=== PATIENT | female | born 2000 | race Caucasian/White ===

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

== ENCOUNTER 2020-02-01 11:29 | Emergency (ER) | payer BC ==
--- NOTE | 2020-02-01 12:09 | EDM.PDOC ---
ED HPI GENERAL MEDICAL PROBLEM - General Chief Complaint: Chest Pain Stated Complaint: BREATHING PROB WITH CHEST PAINS Time Seen by Provider: 02/01/20 11:40 Source of Information: Reports: Patient History Limitations: Reports: No Limitations - History of Present Illness INITIAL COMMENTS - FREE TEXT/NARRATIVE: HISTORY OF PRESENT ILLNESS: Patient is a 19-year-old female G1, P0 at 18 weeks confirmed by ultrasound who presents with complaints of chest pain that has now resolved. Approximately 10:00 she had an hour episode of pleuritic chest pain described as sharp, only when breathing in that resolved spontaneously. Had mild associated dyspnea. Denies any leg pain or history of thromboembolic disease. No syncope. Denies any fevers chills or cough. No hemoptysis. No abdominal pain, nausea vomiting diarrhea or vaginal bleeding. No family history of early or unexpected . REVIEW OF SYSTEMS: Other than the symptoms associated with the present events, the following is reported with regard to recent health: General: (-) fever. HENT: (-) congestion. Respiratory: (-) cough. Cardiovascular: (+) chest pain. GI: (-) abdominal pain. : (-) urinary complaints. Musculoskeletal: (-) other aches or pains. Endocrine: (-) generalized weakness. Neurological: (-) localized weakness. Skin: (-) rash PAST MEDICAL HISTORY: reviewed as per nursing notes SOCIAL HISTORY: reviewed as per nursing notes, MEDICATIONS: Per nurse's note ALLERGIES: Per nurse's note, reviewed by me PHYSICAL EXAMINATION: GENERALIZED APPEARANCE: well developed, well nourished in no distress VITAL SIGNS: Per nurse's note, reviewed by me SKIN: Warm, dry; (-) cyanosis; (-) rash. HEAD: (-) scalp swelling, (-) tenderness. EYES: (-) conjunctival pallor, (-) scleral icterus. ENMT: (-) stridor; mucous membranes moist. NECK: (-) tenderness, (-) stiffness, CHEST AND RESPIRATORY: (-) rales, (-) rhonchi, (-) wheezes; breath sounds equal bilaterally. HEART AND CARDIOVASCULAR: (-) irregularity; (-) murmur, (-) gallop. ABDOMEN AND GI: Soft; . (-) tenderness, (-) guarding, (-) rebound, (-) palpable masses, EXTREMITIES: (-) deformity, (-) edema. no calf swelling, tenderness or palpable cord. NEURO AND PSYCH: Alert. Cranial nerves grossly intact; strength symmetric. gait steady DIAGNOSTICS: Labs ordered and reviewed EKG: sr with sinus arrhythmia at [address]pm[address]. no [address] elevation. EMERGENCY DEPARTMENT COURSE AND TREATMENT: Patient's condition remained stable during Emergency Department evaluation. Based on history, physical exam, and diagnostic evaluation, the patient appears to have symptoms consistent with low risk chest pain. The physical exam was unremarkable including normal chest and respiratory exam. Laboratory testing was performed. I do not believe the symptoms are related to acute ischemic chest pain. I also do not believe this is a vascular catastrophe such as an aortic dissection or an acute rupture of an abdominal aortic aneurysm. The patient is low risk for acute thromboembolic phenomena. PERC score = 0. Although PERC cannot be used in isolation in , given her normal vital signs and resolution of symptoms, do not feel D-dimer indicated as it will likely lead to unnecessary radiation risk. However , she must return immediately with any return of symptoms or any new or worsening symptoms The patient will be discharged to follow-up with their primary care physician and OB in the next 24 hours or return here if unable to make an appointment with their primary care physician. Patient was advised of our evaluation and instructed to seek medical attention immediately if symptoms change, worsen, or new symptoms develop. PLAN AND FOLLOW-UP: Patient received written and verbal instructions regarding this condition. Return to ED immediately with any new or worsening symptoms. Follow up to be arranged by patient with pcp in 1 days for further evaluation. Given discharge precautions. Patient expressed verbal understanding. chest Pain Score (Numeric/FACES): 8 - Related Data Allergies Allergy/AdvReac Type Severity Reaction Status Date / Time No Known Allergies Allergy Verified 05/13/17 20:09 Home Meds: Home Meds . 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: Neurological History: Reports: Headaches, Chronic - Infectious Disease History Infectious Disease History: Reports: None Social & Family History - Family History Family Medical History: Noncontributory - Tobacco Use Smoking Status *Q: Never Smoker - Caffeine Use Caffeine Use: Reports: None - Recreational Drug Use Recreational Drug Use: No ED ROS GENERAL - Review of Systems Review Of Systems: See Below (see dictation) ED EXAM, GENERAL - Physical Exam Exam: See Below (see dictation) Course - Vital Signs Last Recorded V/S: Last Vital Signs Temp 97.1 F 02/01/20 11:32 Pulse 80 02/01/20 11:32 Resp 20 02/01/20 11:32 BP 123/76 02/01/20 11:32 Pulse Ox 100 02/01/20 11:32 - Orders/Labs/Meds Orders: Active Orders 24 hr Category Date Time Status EKG 12 Lead [EKG Documentation Completion] [RC] ROUTINE Care 02/01/20 11:55 Active EKG Documentation Completion [RC] STAT Care 02/01/20 12:04 Active Labs: Laboratory Tests 02/01/20 02/01/20 Range/Units 12:17 12:17 WBC 9.40 (4.0-11.0) K/uL RBC 4.08 L (4.30-5.90) M/uL Hgb 12.6 (12.0-16.0) g/dL Hct 37.9 (36.0-46.0) % MCV 92.9 (80.0-98.0) fL MCH 30.9 (27.0-32.0) pg MCHC 33.2 (31.0-37.0) g/dL RDW Std Deviation 45.0 (28.0-62.0) fl RDW Coeff of Maida 13 (11.0-15.0) % Plt Count 278 (150-400) K/uL MPV 10.70 (7.40-12.00) fL Neut % (Auto) 76.3 (48.0-80.0) % Lymph % (Auto) 17.9 (16.0-40.0) % Caswell % (Auto) 5.0 (0.0-15.0) % Eos % (Auto) 0.5 (0.0-7.0) % Baso % (Auto) 0.3 (0.0-1.5) % Neut # (Auto) 7.2 H (1.4-5.7) K/uL Lymph # (Auto) 1.7 (0.6-2.4) K/uL Caswell # (Auto) 0.5 (0.0-0.8) K/uL Eos # (Auto) 0.1 (0.0-0.7) K/uL Baso # (Auto) 0.0 (0.0-0.1) K/uL Nucleated RBC % 0.0 /100WBC Nucleated RBCs # 0 K/uL Sodium 138 (136-145) mmol/L Potassium 4.1 (3.5-5.1) mmol/L Chloride 103 (98-107) mmol/L Carbon Dioxide 25.9 (21.0-32.0) mmol/L BUN 5 L (7.0-18.0) mg/dL Creatinine 0.5 L (0.6-1.0) mg/dL Est Cr Clr Drug Dosing 153.69 mL/min Estimated GFR (MDRD) > 60.0 ml/min Glucose 77 (74-106) mg/dL Calcium 9.1 (8.5-10.1) mg/dL Magnesium 2.1 (1.8-2.4) mg/dL Total Bilirubin 0.3 (0.2-1.0) mg/dL AST 19 (15-37) IU/L ALT 26 (14-63) IU/L Alkaline Phosphatase 57 (46-116) U/L Troponin I < 0.050 (0.000-0.056) ng/mL Total Protein 7.2 (6.4-8.2) g/dL Albumin 3.3 L (3.4-5.0) g/dL Globulin 3.9 (2.6-4.0) g/dL Albumin/Globulin Ratio 0.9 (0.9-1.6) Departure - Departure Time of Disposition: 13:16 Disposition: Home, Self-Care 01 Condition: Good Clinical Impression: Chest pain - Discharge Information *PRESCRIPTION DRUG MONITORING PROGRAM REVIEWED*: Not Applicable *COPY OF PRESCRIPTION DRUG MONITORING REPORT IN PATIENT ENZO: Not Applicable Instructions: Nonspecific Chest Pain Referrals: PCP,Unobtain [Primary Care Provider] - 1 Day Forms: ED Department Discharge Additional Instructions: The following information is given to patients seen in the emergency department who are being discharged to home. This information is to outline your options for follow-up care. We provide all patients seen in our emergency department with a follow-up referral. The need for follow-up, as well as the timing and circumstances, are variable depending upon the specifics of your emergency department visit. If you don't have a primary care physician on staff, we will provide you with a referral. We always advise you to contact your personal physician following an emergency department visit to inform them of the circumstance of the visit and for follow-up with them and/or the need for any referrals to a consulting specialist. The emergency department will also refer you to a specialist when appropriate. This referral assures that you have the opportunity for follow-up care with a specialist. All of these measure are taken in an effort to provide you with optimal care, which includes your follow-up. Under all circumstances we always encourage you to contact your private physician who remains a resource for coordinating your care. When calling for follow-up care, please make the office aware that this follow-up is from your recent emergency room visit. If for any reason you are refused follow-up, please contact the [facility] Emergency Department at and asked to speak to the emergency department charge nurse. Sepsis Event Note - Evaluation Sepsis Screening Result: No Definite Risk - Focused Exam Vital Signs: Vital Signs Temp Pulse Resp BP Pulse Ox 02/01/20 11:32 97.1 F 80 20 123/76 100 Date Exam was Performed: 02/01/20 Time Exam was Performed: 13:24 - My Orders Last 24 Hours: My Active Orders 02/01/20 11:55 EKG 12 Lead [EKG Documentation Completion] [RC] ROUTINE 02/01/20 12:04 EKG Documentation Completion [RC] STAT - Assessment/Plan Last 24 Hours: My Active Orders 02/01/20 11:55 EKG 12 Lead [EKG Documentation Completion] [RC] ROUTINE 02/01/20 12:04 EKG Documentation Completion [RC] STAT
[2020-02-01 12:44] LABS: BLOOD UREA NITROGEN,BUN 5 mg/dL (7.0-18.0); CARBON DIOXIDE,CO2 25.9 mmol/L (21.0-32.0); CHLORIDE,CL 103 mmol/L (98-107); GLUCOSE RANDOM 77 mg/dL (74-106); POTASSIUM,K 4.1 mmol/L (3.5-5.1); SODIUM,NA 138 mmol/L (136-145)
--- NOTE | 2020-02-01 13:03 | CR ---
Chest: Portable view of the chest was obtained. Heart size and mediastinum are normal. Lungs are clear with no acute parenchymal change. Bony structures are grossly intact. Impression: 1. Nothing acute is identified on portable chest x-ray. Diagnostic code #1 This report was dictated in MDT
[2020-02-01 13:32] VITALS: BP 108/63; PULSE 85
== END 2020-02-01 13:29 | disposition home or self-care (01) ==
LOC: MW.ED 11:29
DX: R07.81 Pleurodynia (principal)
CPT/HCPCS: 36415; 71045; 71045-26; 80053; 83735; 84484; 85025; 93005; 99284; 99285-25

== ENCOUNTER 2020-07-01 00:20 | Inpatient (IN) | payer BC ==
[2020-07-01] MEDS ORDERED: Water For Irrigation,Sterile 1,000 ML Container IRR PRN (09:32)
[2020-07-01] MEDS ORDERED: Methylergonovine 0.2 MG/1 ML Amp IM PRN (09:32)
[2020-07-01] MEDS ORDERED: Sodium Chloride 0.9% 10 ML Syringe FLUSH PRN (09:32)
[2020-07-01] MEDS ORDERED: Terbutaline 1 MG/ML SDV SUBCUT PRN (09:32)
[2020-07-01] MEDS ORDERED: Sodium Chloride 0.9% 2.5 ML Syringe FLUSH PRN (09:32)
[2020-07-01] MEDS ORDERED: Misoprostol 200 MCG Tab PO PRN (09:32)
[2020-07-01] MEDS ORDERED: Carboprost Tromethamine 250 MCG/1 ML Amp IM PRN (09:32)
[2020-07-01] MEDS ORDERED: Lidocaine 1% 50 ML MDV INJECT PRN (09:32)
[2020-07-01] MEDS ORDERED: Tranexamic Acid 1,000 MG in Sodium Chloride 0.9% 100 ML IV PRN (09:32)
[2020-07-01] MEDS ORDERED: Butorphanol 1 MG/ML SDV IVPUSH PRN (09:32)
[2020-07-01] MEDS ORDERED: Nalbuphine 10 MG/1 ML Vial IVPUSH PRN (09:32)
[2020-07-01] MEDS ORDERED: Sodium Chloride 0.9% 10 ML SDV IV PRN (09:32)
[2020-07-01] MEDS ORDERED: Oxytocin/0.9 % Sodium Chloride 30 UNIT/500 ML BAG IV SCH ×2 (09:45)
[2020-07-01] MEDS: Lactated Ringers 1,000 ML IV SCH ×2 (11:00→17:41)
[2020-07-01] MEDS ORDERED: Ropivacaine HCl/PF 100 ML ONE (17:40)
[2020-07-01] MEDS ORDERED: fentaNYL 100 MCG/2 ML SDV ONE (17:40)
--- NOTE | 2020-07-01 18:08 | PCM.PREANE ---
Preanesthetic Assessment - Anesthesia/Transfusion/Family Hx Anesthesia History: No Prior Anesthesia Family History of Anesthesia Reaction: No Transfusion History: Prior Transfusion Without Reaction - Physical Assessment NPO Status Date: 07/01/20 NPO Status Time: 07:30 Height: 1.64 m Weight: 75.75 kg ASA Class: 2 - Lab Values: Laboratory Last Values WBC 9.49 K/uL (4.0-11.0) 07/01/20 10:00 RBC 3.96 M/uL (4.30-5.90) L 07/01/20 10:00 Hgb 11.9 g/dL (12.0-16.0) L 07/01/20 10:00 Hct 35.3 % (36.0-46.0) L 07/01/20 10:00 MCV 89.1 fL (80.0-98.0) 07/01/20 10:00 MCH 30.1 pg (27.0-32.0) 07/01/20 10:00 MCHC 33.7 g/dL (31.0-37.0) 07/01/20 10:00 RDW Std Deviation 39.7 fl (28.0-62.0) 07/01/20 10:00 RDW Coeff of Maida 13 % (11.0-15.0) 07/01/20 10:00 Plt Count 212 K/uL (150-400) 07/01/20 10:00 MPV 11.60 fL (7.40-12.00) 07/01/20 10:00 COVID-19 (GEORGE) NEGATIVE (NEGATIVE) 07/01/20 10:07 Blood Type A POSITIVE 07/01/20 10:00 Antibody Screen NEGATIVE 07/01/20 10:00 - Allergies Allergies/Adverse Reactions: Allergies Allergy/AdvReac Type Severity Reaction Status Date / Time No Known Allergies Allergy Verified 05/13/17 20:09 - Acknowledgements Anesthesia Type Planned: Epidural Pt an Appropriate Candidate for the Planned Anesthesia: Yes Alternatives and Risks of Anesthesia Discussed w Pt/Guardian: Yes Pt/Guardian Understands and Agrees with Anesthesia Plan: Yes PreAnesthesia Questionnaire - Past Health History Medical/Surgical History: Denies Medical/Surgical History HEENT History: Reports: None Cardiovascular History: Reports: None Respiratory History: Reports: None Gastrointestinal History: Reports: None Genitourinary History: Reports: None 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 History: Reports: Fracture Neurological History: Reports: Headaches, Chronic Psychiatric History: Reports: None Endocrine/Metabolic History: Reports: None Hematologic History: Reports: None Oncologic (Cancer) History: Reports: None Dermatologic History: Reports: None - Infectious Disease History Infectious Disease History: Reports: Chicken Pox - Past Surgical History HEENT Surgical History: Reports: Other (See Below) Other HEENT Surgeries/Procedures: wisdom teeth extracted Female Surgical History: Reports: None Musculoskeletal Surgical History: Reports: None - SUBSTANCE USE Smoking Status *Q: Former Smoker Tobacco Use Within Last Twelve Months: Cigarettes Second Hand Smoke Exposure: No Recreational Drug Use History: No - HOME MEDS Home Medications: Home Meds Vits #93/Iron Fum/FA [ Formula Tablet] 1 each PO DAILY 04/25/20 [History] Iron 18 mg PO DAILY 06/17/20 [History] ondansetron HCL [Zofran] 4 mg PO PRN 06/17/20 [History] - CURRENT (IN HOUSE) MEDS Current Meds: Current Medications Butorphanol Tartrate (Stadol) 1 mg IVPUSH Q1H PRN PRN Reason: Pain Last Admin: 07/01/20 17:06 Dose: 1 mg Documented by: Carboprost Tromethamine (Hemabate Ds) 250 mcg IM ASDIRECTED PRN PRN Reason: Post Hemorrhage Oxytocin/Sodium Chloride (Oxytocin 30 Unit/500 Ml-Ns) 30 unit in 500 mls @ 500 mls/hr IV TITRATE TIP Tranexamic Acid 1,000 mg/ (Sodium Chloride) 110 mls @ 660 mls/hr IV ONETIME PRN PRN Reason: Bleeding Oxytocin/Sodium Chloride (Oxytocin 30 Unit/500 Ml-Ns) 30 unit in 500 mls @ 2 mls/hr IV TITRATE TIP; Protocol Last Titration: 07/01/20 17:28 Dose: 2 munits/min, 2 mls/hr Documented by: Lactated Ringer's (Ringers, Lactated) 1,000 mls @ 150 mls/hr IV ASDIRECTED TIP Last Admin: 07/01/20 17:41 Dose: 500 mls/hr Documented by: Lidocaine HCl (Xylocaine 1%) 50 ml INJECT ONETIME PRN PRN Reason: Laceration repair Methylergonovine Maleate (Methergine) 0.2 mg IM ASDIRECTED PRN PRN Reason: Post Hemorrhage Misoprostol (Cytotec) 200 mcg PO ONETIME PRN PRN Reason: Post Hemorrhage Nalbuphine HCl (Nubain) 10 mg IVPUSH Q1H PRN PRN Reason: Pain (severe 7-10) Sodium Chloride (Saline Flush) 10 ml FLUSH ASDIRECTED PRN PRN Reason: Keep Vein Open Sodium Chloride (Saline Flush) 2.5 ml FLUSH ASDIRECTED PRN PRN Reason: Keep Vein Open Sodium Chloride (Normal Saline) 10 ml IV ASDIRECTED PRN PRN Reason: IV Use Sterile Water (Sterile Water For Irrigation) 1,000 ml IRR ASDIRECTED PRN PRN Reason: delivery Terbutaline Sulfate (Brethine) 0.25 mg SUBCUT ASDIRECTED PRN PRN Reason: Tacysystole Discontinued Medications Fentanyl (Sublimaze) Confirm Administered Dose 100 mcg .ROUTE .STK-MED ONE Stop: 07/01/20 17:41 Ropivacaine (Naropin 0.2%) Confirm Administered Dose 100 mls @ as directed .ROUTE .STK-MED ONE Stop: 07/01/20 17:41
--- NOTE | 2020-07-01 18:13 | PCM.PRNOTE ---
- Free Text/Narrative Note: Anes Note Pt requested labor epidural for L and D Risks and methods discussed. she wishes to proceed level L2-L3 midline approach. Sterile technique Chloroprep scrub to lumbar area Sterile Fenestrated drape applied Epidural space easily achieved. Single attempt using CHAN technique CHAN at 4 cm. 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
[2020-07-02] MEDS ORDERED: Lanolin 100% Cream 7 GM Tube TOP PRN (01:21)
[2020-07-02] MEDS ORDERED: oxyCODONE 5 MG Tab PO PRN (01:21)
[2020-07-02] MEDS ORDERED: Docusate Sodium 100 MG Cap PO PRN (01:21)
[2020-07-02] MEDS ORDERED: Bisacodyl 10 MG Supp RECTAL PRN (01:21)
[2020-07-02] MEDS ORDERED: Witch Hazel Medicated Pads 40/Jar TOP PRN (01:21)
[2020-07-02] MEDS ORDERED: Benzocaine/Menthol 20%-0.5% Spray 78 GM Cannister TOP PRN (01:21)
[2020-07-02] MEDS ORDERED: Acetaminophen 500 MG Tab PO PRN (01:21)
--- NOTE | 2020-07-02 01:26 | PCM.DEL ---
<Sky Ashley A - Last Filed: 07/02/20 01:20> L & D Note - General Info Date of Service: 07/02/20 Mother's Due Date: 07/05/20 - Delivery Note Labor: Augmented by Oxytocin Cervical Ripening Method: Oxytocin Delivery Outcome: Livebirth Infant Delivery Method: Spontaneous Vaginal Delivery-Single Delivery Mode: Spontaneous Presentation: Left Occiput Anterior (LAUREN) Nuchal Cord: None Anesthesia Type: Epidural Anesthetic: Lidocaine (Xylocaine) 1% Plain Local Anesthetic Volume: 3cc Amniotic Fluid Description: Meconium Stained Episiotomy Type: None Suture type: Vicryl Suture size: 3-0 Placenta: Intact, Spontaneous Cord: 3 Vessels Estimated Blood Loss: 300 Resuscitation Needed: No Brothers: Bulb Syringe Provider: Stephen Madrid Score 1 min: 8 Score 5 min: 9 Second Stage Interventions: Reports: Pushing Effectively Delivery Comments (Free Text/Narrative):: Liveborn female born at 0020, APGARs 8 and 9 weighing 3270g over a left labial laceration repaired, no complications, mom and baby progressing well - General Info Date of Service: 07/02/20 Admission Dx/Problem (Free Text): Patient elective IOL at 39/3 - Patient Data Weight - Most Recent: 75.75 kg Lab Results Last 24 Hours: Laboratory Results - last 24 hr 07/01/20 07/01/20 07/01/20 Range/Units 10:00 10:00 10:07 WBC 9.49 (4.0-11.0) K/uL RBC 3.96 L (4.30-5.90) M/uL Hgb 11.9 L (12.0-16.0) g/dL Hct 35.3 L (36.0-46.0) % MCV 89.1 (80.0-98.0) fL MCH 30.1 (27.0-32.0) pg MCHC 33.7 (31.0-37.0) g/dL RDW Std Deviation 39.7 (28.0-62.0) fl RDW Coeff of Maiad 13 (11.0-15.0) % Plt Count 212 (150-400) K/uL MPV 11.60 (7.40-12.00) fL COVID-19 (GEORGE) NEGATIVE (NEGATIVE) Blood Type A POSITIVE Antibody Screen NEGATIVE Med Orders - Current: Current Medications Butorphanol Tartrate (Stadol) 1 mg IVPUSH Q1H PRN PRN Reason: Pain Last Admin: 07/01/20 17:06 Dose: 1 mg Documented by: Carboprost Tromethamine (Hemabate Ds) 250 mcg IM ASDIRECTED PRN PRN Reason: Post Hemorrhage Oxytocin/Sodium Chloride (Oxytocin 30 Unit/500 Ml-Ns) 30 unit in 500 mls @ 500 mls/hr IV TITRATE TIP Last Infusion: 07/02/20 00:37 Dose: 500 mls/hr Documented by: Tranexamic Acid 1,000 mg/ (Sodium Chloride) 110 mls @ 660 mls/hr IV ONETIME PRN PRN Reason: Bleeding Oxytocin/Sodium Chloride (Oxytocin 30 Unit/500 Ml-Ns) 30 unit in 500 mls @ 2 mls/hr IV TITRATE TIP; Protocol Last Titration: 07/02/20 00:21 Dose: 0 munits/min, 0 mls/hr Documented by: Lactated Ringer's (Ringers, Lactated) 1,000 mls @ 150 mls/hr IV ASDIRECTED TIP Last Admin: 07/01/20 17:41 Dose: 500 mls/hr Documented by: Lidocaine HCl (Xylocaine 1%) 50 ml INJECT ONETIME PRN PRN Reason: Laceration repair Last Admin: 07/02/20 00:30 Dose: 50 ml Documented by: Methylergonovine Maleate (Methergine) 0.2 mg IM ASDIRECTED PRN PRN Reason: Post Hemorrhage Misoprostol (Cytotec) 200 mcg PO ONETIME PRN PRN Reason: Post Hemorrhage Nalbuphine HCl (Nubain) 10 mg IVPUSH Q1H PRN PRN Reason: Pain (severe 7-10) Sodium Chloride (Saline Flush) 10 ml FLUSH ASDIRECTED PRN PRN Reason: Keep Vein Open Sodium Chloride (Saline Flush) 2.5 ml FLUSH ASDIRECTED PRN PRN Reason: Keep Vein Open Sodium Chloride (Normal Saline) 10 ml IV ASDIRECTED PRN PRN Reason: IV Use Sterile Water (Sterile Water For Irrigation) 1,000 ml IRR ASDIRECTED PRN PRN Reason: delivery Last Admin: 07/02/20 00:38 Dose: 1,000 ml Documented by: Terbutaline Sulfate (Brethine) 0.25 mg SUBCUT ASDIRECTED PRN PRN Reason: Tacysystole Discontinued Medications Fentanyl (Sublimaze) Confirm Administered Dose 100 mcg .ROUTE .STK-MED ONE Stop: 07/01/20 17:41 Ropivacaine (Naropin 0.2%) Confirm Administered Dose 100 mls @ as directed .ROUTE .STK-MED ONE Stop: 07/01/20 17:41 <Katie Becker - Last Filed: 07/02/20 01:36> L & D Note - Delivery Note Delivery Comments (Free Text/Narrative):: Compound right hand - Patient Data Lab Results Last 24 Hours: Laboratory Results - last 24 hr 07/01/20 07/01/20 07/01/20 Range/Units 10:00 10:00 10:07 WBC 9.49 (4.0-11.0) K/uL RBC 3.96 L (4.30-5.90) M/uL Hgb 11.9 L (12.0-16.0) g/dL Hct 35.3 L (36.0-46.0) % MCV 89.1 (80.0-98.0) fL MCH 30.1 (27.0-32.0) pg MCHC 33.7 (31.0-37.0) g/dL RDW Std Deviation 39.7 (28.0-62.0) fl RDW Coeff of Maida 13 (11.0-15.0) % Plt Count 212 (150-400) K/uL MPV 11.60 (7.40-12.00) fL Cord VBG pH (7.25-7.45) Cord VBG Base Excess (-10--2) COVID-19 (GEORGE) NEGATIVE (NEGATIVE) Blood Type A POSITIVE Antibody Screen NEGATIVE 07/02/20 Range/Units 00:23 WBC (4.0-11.0) K/uL RBC (4.30-5.90) M/uL Hgb (12.0-16.0) g/dL Hct (36.0-46.0) % MCV (80.0-98.0) fL MCH (27.0-32.0) pg MCHC (31.0-37.0) g/dL RDW Std Deviation (28.0-62.0) fl RDW Coeff of Maida (11.0-15.0) % Plt Count (150-400) K/uL MPV (7.40-12.00) fL Cord VBG pH 7.328 (7.25-7.45) Cord VBG Base Excess -4 (-10--2) COVID-19 (GEORGE) (NEGATIVE) Blood Type Antibody Screen Med Orders - Current: Current Medications Acetaminophen (Tylenol Extra Strength) 1,000 mg PO Q6H PRN PRN Reason: Pain Benzocaine/Menthol (Dermoplast Pain Relief 20%-0.5% [place]) 78 gm TOP ASDIRECTED PRN PRN Reason: Perineal Comfort Measure Bisacodyl (Dulcolax) 10 mg RECTAL ONETIME PRN PRN Reason: Constipation Butorphanol Tartrate (Stadol) 1 mg IVPUSH Q1H PRN PRN Reason: Pain Last Admin: 07/01/20 17:06 Dose: 1 mg Documented by: Carboprost Tromethamine (Hemabate Ds) 250 mcg IM ASDIRECTED PRN PRN Reason: Post Hemorrhage Docusate Sodium (Colace) 100 mg PO BID PRN PRN Reason: Constipation Emollient Ointment (Lansinoh Hpa) 0 gm TOP ASDIRECTED PRN PRN Reason: Sore Nipples Oxytocin/Sodium Chloride (Oxytocin 30 Unit/500 Ml-Ns) 30 unit in 500 mls @ 500 mls/hr IV TITRATE TIP Last Infusion: 07/02/20 00:37 Dose: 500 mls/hr Documented by: Tranexamic Acid 1,000 mg/ (Sodium Chloride) 110 mls @ 660 mls/hr IV ONETIME PRN PRN Reason: Bleeding Oxytocin/Sodium Chloride (Oxytocin 30 Unit/500 Ml-Ns) 30 unit in 500 mls @ 2 mls/hr IV TITRATE TIP; Protocol Last Titration: 07/02/20 00:21 Dose: 0 munits/min, 0 mls/hr Documented by: Lactated Ringer's (Ringers, Lactated) 1,000 mls @ 150 mls/hr IV ASDIRECTED TIP Last Admin: 07/01/20 17:41 Dose: 500 mls/hr Documented by: Ibuprofen (Motrin) 800 mg PO Q8H PRN PRN Reason: Pain Lidocaine HCl (Xylocaine 1%) 50 ml INJECT ONETIME PRN PRN Reason: Laceration repair Last Admin: 07/02/20 00:30 Dose: 50 ml Documented by: Methylergonovine Maleate (Methergine) 0.2 mg IM ASDIRECTED PRN PRN Reason: Post Hemorrhage Misoprostol (Cytotec) 200 mcg PO ONETIME PRN PRN Reason: Post Hemorrhage Nalbuphine HCl (Nubain) 10 mg IVPUSH Q1H PRN PRN Reason: Pain (severe 7-10) Oxycodone HCl (Oxycodone) 5 mg PO Q2H PRN PRN Reason: Pain Sodium Chloride (Saline Flush) 10 ml FLUSH ASDIRECTED PRN PRN Reason: Keep Vein Open Sodium Chloride (Saline Flush) 2.5 ml FLUSH ASDIRECTED PRN PRN Reason: Keep Vein Open Sodium Chloride (Normal Saline) 10 ml IV ASDIRECTED PRN PRN Reason: IV Use Sterile Water (Sterile Water For Irrigation) 1,000 ml IRR ASDIRECTED PRN PRN Reason: delivery Last Admin: 07/02/20 00:38 Dose: 1,000 ml Documented by: Terbutaline Sulfate (Brethine) 0.25 mg SUBCUT ASDIRECTED PRN PRN Reason: Tacysystole Witch Jesica (Tucks) 1 pad TOP ASDIRECTED PRN PRN Reason: comfort care Discontinued Medications Fentanyl (Sublimaze) Confirm Administered Dose 100 mcg .ROUTE .STK-MED ONE Stop: 07/01/20 17:41 Ropivacaine (Naropin 0.2%) Confirm Administered Dose 100 mls @ as directed .ROUTE .STK-MED ONE Stop: 07/01/20 17:41 - Problem List & Annotations (1) Vaginal delivery SNOMED Code(s): 120240331 Code(s): O80 - ENCOUNTER FOR FULL-TERM UNCOMPLICATED DELIVERY Status: Acute Current Visit: Yes - Problem List Review Problem List Initiated/Reviewed/Updated: Yes - My Orders Last 24 Hours: My Active Orders 07/01/20 09:32 Patient Status [ADT] Routine Bedrest Bathroom Privileges [RC] ASDIRECTED Communication Order [RC] ASDIRECTED Communication Order [RC] ASDIRECTED Heart Tones [RC] CONTINUOUS Non Stress Test [RC] PER UNIT ROUTINE May Shower [RC] ASDIRECTED Notify Provider [RC] PRN Notify Provider [RC] PRN Notify Provider [RC] STAT Oxygen Therapy [RC] ASDIRECTED Up ad Lynnette [RC] ASDIRECTED Vaginal Exam [RC] PRN Vaginal Exam [RC] PRN Vital Signs [RC] PER UNIT ROUTINE Vital Signs [RC] PER UNIT ROUTINE Butorphanol [Stadol] 1 mg IVPUSH Q1H PRN Carboprost Tromethamine [Hemabate DS] 250 mcg IM ASDIRECTED PRN Lidocaine 1% [Xylocaine 1%] 50 ml INJECT ONETIME PRN Methylergonovine [Methergine] 0.2 mg IM ASDIRECTED PRN Nalbuphine [Nubain] 10 mg IVPUSH Q1H PRN Sodium Chloride 0.9% [Normal Saline] 10 ml IV ASDIRECTED PRN Sodium Chloride 0.9% [Saline Flush] 10 ml FLUSH ASDIRECTED PRN Sodium Chloride 0.9% [Saline Flush] 2.5 ml FLUSH ASDIRECTED PRN Terbutaline [Brethine] 0.25 mg SUBCUT ASDIRECTED PRN Tranexamic Acid [Cyklokapron] 1,000 mg Sodium Chloride 0.9% [Normal Saline] 100 ml IV ONETIME Water For Irrigation,Sterile [Sterile Water for Irrigation] 1,000 ml IRR ASDIRECTED PRN miSOPROStoL [Cytotec] 200 mcg PO ONETIME PRN Scalp Electrode [WOMSER] Per Unit Routine Peripheral IV Insertion Adult [OM.PC] Routine Resuscitation Status Routine 07/01/20 09:45 Lactated Ringers [Ringers, Lactated] 1,000 ml IV ASDIRECTED Oxytocin/0.9 % Sodium Chloride [Oxytocin 30 Unit/500 ML-NS] 30 unit in 500 ml IV TITRATE Oxytocin/0.9 % Sodium Chloride [Oxytocin 30 Unit/500 ML-NS] 30 unit in 500 ml IV TITRATE Medication Administration Instruction [OM.PC] Q3H 07/01/20 10:00 RPR (SYPHILIS SERO) W/ RFLX [REF] Routine 07/01/20 Lunch Clear Liquid Diet [DIET] 07/02/20 01:21 Patient Status [ADT] Routine May Shower [RC] ASDIRECTED Notify Provider Vital Signs [RC] ASDIRECTED Up ad Lynnette [RC] ASDIRECTED Vital Signs [RC] PER UNIT ROUTINE Acetaminophen [Tylenol Extra Strength] 1,000 mg PO Q6H PRN Benzocaine/Menthol [Dermoplast Pain Relief 20%-0.5% [place]] 78 gm TOP ASDIRECTED PRN Docusate Sodium [Colace] 100 mg PO BID PRN Ibuprofen [Motrin] 800 mg PO Q8H PRN Lanolin [Lansinoh HPA] See Dose Instructions TOP ASDIRECTED PRN bisacodyL [Dulcolax] 10 mg RECTAL ONETIME PRN oxyCODONE 5 mg PO Q2H PRN witch Jesica [Tucks] 1 pad TOP ASDIRECTED PRN Assess Lochia [WOMSER] Per Unit Routine Assess Uterine Involution [WOMSER] Per Unit Routine Breast Pump [WOMSER] Per Unit Routine Peripheral IV Discontinue [OM.PC] Routine 07/02/20 01:22 Cooling Warming Measures [RC] ASDIRECTED Ice Therapy [OM.PC] Per Unit Routine Perineal Care [OM.PC] Per Unit Routine Sitz Bath [OM.PC] Per Unit Routine 07/02/20 Breakfast Regular Diet [DIET] 07/03/20 05:11 HEMOGLOBIN/HEMATOCRIT,HH [HEME] Timed - Assessment Assessment:: 19yo s/p at 39w3d - Plan Plan:: Admit to unit for routine care.
[2020-07-02] MEDS: Ibuprofen 800 MG Tab PO PRN ×2 (02:46→18:03)
--- NOTE | 2020-07-02 05:44 | OR ---
SURGEON: Katie Becker MD DATE OF PROCEDURE: 07/02/2020 PREOPERATIVE DIAGNOSES: 1. 19-year-old, G1, P0. 2. Elective induction of labor. 3. pyelectasis. 4. Group B streptococcus negative. POSTOPERATIVE DIAGNOSES: 1. 19-year-old, G1, P1-0-0-1 status post spontaneous vaginal delivery. 2. pyelectasis. 3. Thick meconium fluid. 4. Group B streptococcus negative. PROCEDURE: Spontaneous vaginal delivery and repair of left labial lacerations. PRIMARY SURGEON: Katie Becker MD BULK DRIVER: Agueda Ashley, medical student. ANESTHESIA: Epidural and 1% lidocaine. ESTIMATED BLOOD LOSS: 300 mL. FINDINGS: Live female in cephalic presentation. score of 8 and 9 at one and five minutes respectively. Weight 3270 g. Placenta intact with 3-vessel cord. Left labial laceration. INDICATIONS: This is a 19-year-old, G1, P0, who presented at 39 weeks and 2 days' gestation for planned elective induction of labor. Upon presentation, her cervix was found to be 3 cm dilated. She was started on Pitocin for induction of labor. She underwent artificial rupture of membranes at approximately 4 cm dilated and thick meconium fluid was noted. She received an epidural for pain control. She progressed to complete cervical dilation and began pushing. The 's head was in occiput posterior position during pushing. Manual rotation was performed, which resulted in positioning being right occiput anterior. She continued pushing. I was called to the room when she was +4 station. DESCRIPTION OF PROCEDURE: I arrived to the room with the 's head at +4 station. Over the next several contractions, she pushed and delivered a live female . The head was delivered with a compound right arm followed by the shoulders and remainder of the body. The infant was placed on maternal abdomen. After approximately 60 seconds, cord was clamped and cut. Venous cord blood was obtained. Venous cord gases were obtained. The placenta then delivered via the Meadows-Meza maneuver intact and 3-vessel cord. The perineum was inspected and a left labial laceration was noted. This was infiltrated with 1% lidocaine for anesthesia and then repaired to anatomy. Hemostasis with 3-0 Vicryl. The fundus was firm below the umbilicus with minimal lochia. The patient and tolerated the delivery well. [id number] / MODL /[id number]
--- NOTE | 2020-07-02 07:34 | PCM48HPAN ---
Post Anesthesia Note - EVALUATION WITHIN 48HRS OF ANESTHETIC Vital Signs in Normal Range: Yes Patient Participated in Evaluation: Yes Respiratory Function Stable: Yes Airway Patent: Yes Cardiovascular Function Stable: Yes Hydration Status Stable: Yes Pain Control Satisfactory: Yes Nausea and Vomiting Control Satisfactory: Yes Mental Status Recovered: Yes
--- NOTE | 2020-07-02 12:34 | PCM.PNPP ---
<Sky Ashley - Last Filed: 07/02/20 12:29> - General Info Date of Service: 07/02/20 Admission Dx/Problem (Free Text): Patient elective IOL at 39/3 Subjective Update: Patient is feeling well, states she is not having any pain, ambulating, tolerating diet, minimal lochia, baby latching well Functional Status: Reports: Pain Controlled, Tolerating Diet, Ambulating, Urinating - Review of Systems General: Reports: No Symptoms HEENT: Reports: No Symptoms Pulmonary: Reports: No Symptoms Cardiovascular: Reports: No Symptoms Gastrointestinal: Reports: No Symptoms Genitourinary: Reports: No Symptoms Musculoskeletal: Reports: No Symptoms Skin: Reports: No Symptoms Neurological: Reports: No Symptoms Psychiatric: Reports: No Symptoms - General Info Date of Service: 07/02/20 - Patient Data Vital Signs - Most Recent: Last Vital Signs Temp 98.2 F 07/02/20 08:00 Pulse 96 07/02/20 08:00 Resp 15 07/02/20 08:00 BP 111/79 07/02/20 08:00 Pulse Ox 98 07/02/20 08:00 Weight - Most Recent: 75.75 kg Lab Results - Last 24 Hours: Laboratory Results - last 24 hr 07/02/20 Range/Units 00:23 Cord VBG pH 7.328 (7.25-7.45) Cord VBG Base Excess -4 (-10--2) Med Orders - Current: Current Medications Acetaminophen (Tylenol Extra Strength) 1,000 mg PO Q6H PRN PRN Reason: Pain Benzocaine/Menthol (Dermoplast Pain Relief 20%-0.5% [place]) 78 gm TOP ASDIRECTED PRN PRN Reason: Perineal Comfort Measure Last Admin: 07/02/20 02:51 Dose: 1 canister Documented by: Bisacodyl (Dulcolax) 10 mg RECTAL ONETIME PRN PRN Reason: Constipation Butorphanol Tartrate (Stadol) 1 mg IVPUSH Q1H PRN PRN Reason: Pain Last Admin: 07/01/20 17:06 Dose: 1 mg Documented by: Carboprost Tromethamine (Hemabate Ds) 250 mcg IM ASDIRECTED PRN PRN Reason: Post Hemorrhage Docusate Sodium (Colace) 100 mg PO BID PRN PRN Reason: Constipation Emollient Ointment (Lansinoh Hpa) 0 gm TOP ASDIRECTED PRN PRN Reason: Sore Nipples Last Admin: 07/02/20 02:50 Dose: 7 g Documented by: Oxytocin/Sodium Chloride (Oxytocin 30 Unit/500 Ml-Ns) 30 unit in 500 mls @ 500 mls/hr IV TITRATE TIP Last Infusion: 07/02/20 00:37 Dose: 500 mls/hr Documented by: Tranexamic Acid 1,000 mg/ (Sodium Chloride) 110 mls @ 660 mls/hr IV ONETIME PRN PRN Reason: Bleeding Oxytocin/Sodium Chloride (Oxytocin 30 Unit/500 Ml-Ns) 30 unit in 500 mls @ 2 mls/hr IV TITRATE TIP; Protocol Last Titration: 07/02/20 00:21 Dose: 0 munits/min, 0 mls/hr Documented by: Lactated Ringer's (Ringers, Lactated) 1,000 mls @ 150 mls/hr IV ASDIRECTED TIP Last Admin: 07/01/20 17:41 Dose: 500 mls/hr Documented by: Ibuprofen (Motrin) 800 mg PO Q8H PRN PRN Reason: Pain Last Admin: 07/02/20 02:46 Dose: 800 mg Documented by: Lidocaine HCl (Xylocaine 1%) 50 ml INJECT ONETIME PRN PRN Reason: Laceration repair Last Admin: 07/02/20 00:30 Dose: 50 ml Documented by: Methylergonovine Maleate (Methergine) 0.2 mg IM ASDIRECTED PRN PRN Reason: Post Hemorrhage Misoprostol (Cytotec) 200 mcg PO ONETIME PRN PRN Reason: Post Hemorrhage Nalbuphine HCl (Nubain) 10 mg IVPUSH Q1H PRN PRN Reason: Pain (severe 7-10) Oxycodone HCl (Oxycodone) 5 mg PO Q2H PRN PRN Reason: Pain Sodium Chloride (Saline Flush) 10 ml FLUSH ASDIRECTED PRN PRN Reason: Keep Vein Open Sodium Chloride (Saline Flush) 2.5 ml FLUSH ASDIRECTED PRN PRN Reason: Keep Vein Open Sodium Chloride (Normal Saline) 10 ml IV ASDIRECTED PRN PRN Reason: IV Use Sterile Water (Sterile Water For Irrigation) 1,000 ml IRR ASDIRECTED PRN PRN Reason: delivery Last Admin: 07/02/20 00:38 Dose: 1,000 ml Documented by: Terbutaline Sulfate (Brethine) 0.25 mg SUBCUT ASDIRECTED PRN PRN Reason: Tacysystole Rohan Mooney (Tucks) 1 pad TOP ASDIRECTED PRN PRN Reason: comfort care Last Admin: 07/02/20 02:51 Dose: 1 tub Documented by: Discontinued Medications Fentanyl (Sublimaze) Confirm Administered Dose 100 mcg .ROUTE .STK-MED ONE Stop: 07/01/20 17:41 Ropivacaine (Naropin 0.2%) Confirm Administered Dose 100 mls @ as directed .ROUTE .STK-MED ONE Stop: 07/01/20 17:41 - Interaction Disposition, : at Bedside Infant Interaction: Holding Infant Infant Feeding: Breastfed Infant; Nursed Well (Latching well ) Support Person: - Recovery Exam Fundal Tone: Firm Fundal Level: 1 Fingerbreadths Below Umbilicus Fundal Placement: Right Lochia Amount: Scant Lochia Color: Rubra/Red Other Perinuem Description: Left labial laceration Episiotomy/Laceration: Approximated Bladder Status: Voiding - Exam General: Alert, Oriented, Cooperative, No Acute Distress Neck: Supple Lungs: Clear to Auscultation, Normal Respiratory Effort Cardiovascular: Regular Rate, Regular Rhythm GI/Abdominal Exam: Normal Bowel Sounds, Soft, Non-Tender, No Organomegaly, No Distention, No Abnormal Bruit, No Mass, Pelvis Stable Extremities: Normal Inspection, Normal Range of Motion, Non-Tender, No Pedal Edema, Normal Capillary Refill Skin: Warm, Dry, Intact Neurological: No New Focal Deficit Psy/Mental Status: Alert, Normal Affect, Normal Mood - Assessment Assessment:: 19yo s/p at 39w3d - Plan Plan:: Continue cares - Ambulation - Diet as tolerated - PRN Tylenol - Discharge home tomorrow morning after 24 hrs <Katie Becker - Last Filed: 07/03/20 07:54> - Patient Data Vital Signs - Most Recent: Last Vital Signs Temp 36.9 C 07/03/20 04:00 Pulse 77 07/03/20 04:00 Resp 18 07/03/20 04:00 BP 105/66 08/12/20 04:00 Pulse Ox 97 07/03/20 04:00 Lab Results - Last 24 Hours: Laboratory Results - last 24 hr 07/03/20 Range/Units 05:57 Hgb 10.3 L (12.0-16.0) g/dL Hct 32.5 L (36.0-46.0) % Med Orders - Current: Current Medications Acetaminophen (Tylenol Extra Strength) 1,000 mg PO Q6H PRN PRN Reason: Pain Benzocaine/Menthol (Dermoplast Pain Relief 20%-0.5% [place]) 78 gm TOP ASDIRECTED PRN PRN Reason: Perineal Comfort Measure Last Admin: 07/02/20 02:51 Dose: 1 canister Documented by: Bisacodyl (Dulcolax) 10 mg RECTAL ONETIME PRN PRN Reason: Constipation Butorphanol Tartrate (Stadol) 1 mg IVPUSH Q1H PRN PRN Reason: Pain Last Admin: 07/01/20 17:06 Dose: 1 mg Documented by: Carboprost Tromethamine (Hemabate Ds) 250 mcg IM ASDIRECTED PRN PRN Reason: Post Hemorrhage Docusate Sodium (Colace) 100 mg PO BID PRN PRN Reason: Constipation Last Admin: 07/02/20 20:58 Dose: 100 mg Documented by: Emollient Ointment (Lansinoh Hpa) 0 gm TOP ASDIRECTED PRN PRN Reason: Sore Nipples Last Admin: 07/02/20 02:50 Dose: 7 g Documented by: Oxytocin/Sodium Chloride (Oxytocin 30 Unit/500 Ml-Ns) 30 unit in 500 mls @ 500 mls/hr IV TITRATE TIP Last Infusion: 07/02/20 00:37 Dose: 500 mls/hr Documented by: Tranexamic Acid 1,000 mg/ (Sodium Chloride) 110 mls @ 660 mls/hr IV ONETIME PRN PRN Reason: Bleeding Oxytocin/Sodium Chloride (Oxytocin 30 Unit/500 Ml-Ns) 30 unit in 500 mls @ 2 mls/hr IV TITRATE TIP; Protocol Last Titration: 07/02/20 00:21 Dose: 0 munits/min, 0 mls/hr Documented by: Lactated Ringer's (Ringers, Lactated) 1,000 mls @ 150 mls/hr IV ASDIRECTED TIP Last Admin: 07/01/20 17:41 Dose: 500 mls/hr Documented by: Ibuprofen (Motrin) 800 mg PO Q8H PRN PRN Reason: Pain Last Admin: 07/02/20 18:03 Dose: 800 mg Documented by: Lidocaine HCl (Xylocaine 1%) 50 ml INJECT ONETIME PRN PRN Reason: Laceration repair Last Admin: 07/02/20 00:30 Dose: 50 ml Documented by: Methylergonovine Maleate (Methergine) 0.2 mg IM ASDIRECTED PRN PRN Reason: Post Hemorrhage Misoprostol (Cytotec) 200 mcg PO ONETIME PRN PRN Reason: Post Hemorrhage Nalbuphine HCl (Nubain) 10 mg IVPUSH Q1H PRN PRN Reason: Pain (severe 7-10) Oxycodone HCl (Oxycodone) 5 mg PO Q2H PRN PRN Reason: Pain Sodium Chloride (Saline Flush) 10 ml FLUSH ASDIRECTED PRN PRN Reason: Keep Vein Open Sodium Chloride (Saline Flush) 2.5 ml FLUSH ASDIRECTED PRN PRN Reason: Keep Vein Open Sodium Chloride (Normal Saline) 10 ml IV ASDIRECTED PRN PRN Reason: IV Use Sterile Water (Sterile Water For Irrigation) 1,000 ml IRR ASDIRECTED PRN PRN Reason: delivery Last Admin: 07/02/20 00:38 Dose: 1,000 ml Documented by: Terbutaline Sulfate (Brethine) 0.25 mg SUBCUT ASDIRECTED PRN PRN Reason: Tacysystole Witch Jesica (Tucks) 1 pad TOP ASDIRECTED PRN PRN Reason: comfort care Last Admin: 07/02/20 02:51 Dose: 1 tub Documented by: Discontinued Medications Fentanyl (Sublimaze) Confirm Administered Dose 100 mcg .ROUTE .STK-MED ONE Stop: 07/01/20 17:41 Ropivacaine (Naropin 0.2%) Confirm Administered Dose 100 mls @ as directed .ROUTE .STK-MED ONE Stop: 07/01/20 17:41 Ketorolac Tromethamine (Toradol) 30 mg IVPUSH ONETIME STA Stop: 07/02/20 18:15 Last Admin: 07/02/20 18:29 Dose: 30 mg Documented by: - Problem List & Annotations (1) Vaginal delivery SNOMED Code(s): 230063851 Code(s): O80 - ENCOUNTER FOR FULL-TERM UNCOMPLICATED DELIVERY Status: Acute Current Visit: Yes - Problem List Review Problem List Initiated/Reviewed/Updated: Yes - Plan Plan:: Agree with the above.
[2020-07-02] MEDS ORDERED: Ketorolac 30 MG/ML SDV IVPUSH STA (18:14)
--- NOTE | 2020-07-02 19:55 | PCM.SN.2 ---
- Free Text/Narrative Note: S: Patient is a 19 year old status post at 39w3d without complications. She is complaining of abrupt onset right lower quadrant pain. This pain radiates to her leg. She denies any nausea or vomiting. She has never had any instances like this in the past. She states that she was lying in bed when this pain began. She has attempted to use a heating bad without benefit. O: Vitals: 98.2 F Pulse 96, blood pressure 11/79, respiratory rate 15, O2 Saturation 98. Physical exam: the patient appears in acute distress. She is holding her right lower abdomen and crying. Abdominal exam demonstrates multiple striae. Auscultation demonstrates hypoactive bowel sounds. There is localized tenderness in the right lower quadrant to light palpation. Abdomen is otherwise non tender. No rebound tenderness noted. Negative obturator sign. No hepatosplenomegaly palpated on exam. Uterus is midline, at the umbilicus and firm; uterus is non tender. There is no suprapubic tenderness and no CVA tenderness. The abdomen is non distended, and is not rigid on exam. A: Acute right abdominal pain - patient is currently hemodynamically stable and afebrile, without uterine tenderness on exam and no noted acute abdomen. Differential diagnosis includes muscle spasm, ovarian cyst rupture, acute appendicitis and uterine rupture. P: IV ketorolac (toradol) 30 mg for pain management. At this point post delivery a CBC will likely demonstrate a physiologic leukocytosis. A CBC is ordered for tomorrow morning. If pain does not improve or worsens, consider further imaging - including but not limited to CT abdomen/pelvis and US
--- NOTE | 2020-07-03 07:35 | PCM.PNPP ---
<Sky Ashley - Last Filed: 07/03/20 07:30> - General Info Date of Service: 07/03/20 Admission Dx/Problem (Free Text): Patient elective IOL at 39/3 Subjective Update: Patient is feeling well, states she is not having any pain now, had some severe right lower quadrant pain yesterday evening which resolved with Toradol, no fever, chills, nausea or vomiting, ambulating, tolerating diet, minimal lochia, waiting for a bowel movement, received stool softeners yesterday baby latching and nursing well Functional Status: Reports: Pain Controlled, Tolerating Diet, Ambulating, Urinating Pain Score: 2 - Review of Systems General: Reports: No Symptoms HEENT: Reports: No Symptoms Pulmonary: Reports: No Symptoms Cardiovascular: Reports: No Symptoms Gastrointestinal: Reports: No Symptoms Genitourinary: Reports: No Symptoms Musculoskeletal: Reports: No Symptoms Skin: Reports: No Symptoms Neurological: Reports: No Symptoms Psychiatric: Reports: No Symptoms - General Info Date of Service: 07/03/20 - Patient Data Vital Signs - Most Recent: Last Vital Signs Temp 98.4 F 07/03/20 04:00 Pulse 77 07/03/20 04:00 Resp 18 07/03/20 04:00 BP 105/66 07/03/20 04:00 Pulse Ox 97 07/03/20 04:00 Weight - Most Recent: 75.75 kg Lab Results - Last 24 Hours: Laboratory Results - last 24 hr 07/03/20 Range/Units 05:57 Hgb 10.3 L (12.0-16.0) g/dL Hct 32.5 L (36.0-46.0) % Med Orders - Current: Current Medications Acetaminophen (Tylenol Extra Strength) 1,000 mg PO Q6H PRN PRN Reason: Pain Benzocaine/Menthol (Dermoplast Pain Relief 20%-0.5% [place]) 78 gm TOP ASDIRECTED PRN PRN Reason: Perineal Comfort Measure Last Admin: 07/02/20 02:51 Dose: 1 canister Documented by: Bisacodyl (Dulcolax) 10 mg RECTAL ONETIME PRN PRN Reason: Constipation Butorphanol Tartrate (Stadol) 1 mg IVPUSH Q1H PRN PRN Reason: Pain Last Admin: 07/01/20 17:06 Dose: 1 mg Documented by: Carboprost Tromethamine (Hemabate Ds) 250 mcg IM ASDIRECTED PRN PRN Reason: Post Hemorrhage Docusate Sodium (Colace) 100 mg PO BID PRN PRN Reason: Constipation Last Admin: 07/02/20 20:58 Dose: 100 mg Documented by: Emollient Ointment (Lansinoh Hpa) 0 gm TOP ASDIRECTED PRN PRN Reason: Sore Nipples Last Admin: 07/02/20 02:50 Dose: 7 g Documented by: Oxytocin/Sodium Chloride (Oxytocin 30 Unit/500 Ml-Ns) 30 unit in 500 mls @ 500 mls/hr IV TITRATE TIP Last Infusion: 07/02/20 00:37 Dose: 500 mls/hr Documented by: Tranexamic Acid 1,000 mg/ (Sodium Chloride) 110 mls @ 660 mls/hr IV ONETIME PRN PRN Reason: Bleeding Oxytocin/Sodium Chloride (Oxytocin 30 Unit/500 Ml-Ns) 30 unit in 500 mls @ 2 mls/hr IV TITRATE TIP; Protocol Last Titration: 07/02/20 00:21 Dose: 0 munits/min, 0 mls/hr Documented by: Lactated Ringer's (Ringers, Lactated) 1,000 mls @ 150 mls/hr IV ASDIRECTED TIP Last Admin: 07/01/20 17:41 Dose: 500 mls/hr Documented by: Ibuprofen (Motrin) 800 mg PO Q8H PRN PRN Reason: Pain Last Admin: 07/02/20 18:03 Dose: 800 mg Documented by: Lidocaine HCl (Xylocaine 1%) 50 ml INJECT ONETIME PRN PRN Reason: Laceration repair Last Admin: 07/02/20 00:30 Dose: 50 ml Documented by: Methylergonovine Maleate (Methergine) 0.2 mg IM ASDIRECTED PRN PRN Reason: Post Hemorrhage Misoprostol (Cytotec) 200 mcg PO ONETIME PRN PRN Reason: Post Hemorrhage Nalbuphine HCl (Nubain) 10 mg IVPUSH Q1H PRN PRN Reason: Pain (severe 7-10) Oxycodone HCl (Oxycodone) 5 mg PO Q2H PRN PRN Reason: Pain Sodium Chloride (Saline Flush) 10 ml FLUSH ASDIRECTED PRN PRN Reason: Keep Vein Open Sodium Chloride (Saline Flush) 2.5 ml FLUSH ASDIRECTED PRN PRN Reason: Keep Vein Open Sodium Chloride (Normal Saline) 10 ml IV ASDIRECTED PRN PRN Reason: IV Use Sterile Water (Sterile Water For Irrigation) 1,000 ml IRR ASDIRECTED PRN PRN Reason: delivery Last Admin: 07/02/20 00:38 Dose: 1,000 ml Documented by: Terbutaline Sulfate (Brethine) 0.25 mg SUBCUT ASDIRECTED PRN PRN Reason: Tacysystole Witch Jesica (Tucks) 1 pad TOP ASDIRECTED PRN PRN Reason: comfort care Last Admin: 07/02/20 02:51 Dose: 1 tub Documented by: Discontinued Medications Fentanyl (Sublimaze) Confirm Administered Dose 100 mcg .ROUTE .STK-MED ONE Stop: 07/01/20 17:41 Ropivacaine (Naropin 0.2%) Confirm Administered Dose 100 mls @ as directed .ROUTE .STK-MED ONE Stop: 07/01/20 17:41 Ketorolac Tromethamine (Toradol) 30 mg IVPUSH ONETIME STA Stop: 07/02/20 18:15 Last Admin: 07/02/20 18:29 Dose: 30 mg Documented by: - Infant Interaction Infant Disposition, : [place] at Bedside Interaction: Holding Infant Infant Feeding: Breastfed Infant; Nursed Well (Latching well ) Support Person: - Recovery Exam Fundal Tone: Firm Fundal Level: At Umbilicus Fundal Placement: Midline Lochia Amount: Scant Lochia Color: Rubra/Red Perineum Description: Other (see below) Other Perinuem Description: left labial laceration Episiotomy/Laceration: Approximated Bladder Status: Voiding Urinary Elimination: Voided - Exam General: Alert, Oriented Neck: Supple, Trachea Midline, No JVD Lungs: Clear to Auscultation, Normal Respiratory Effort Cardiovascular: Regular Rate, Regular Rhythm GI/Abdominal Exam: Normal Bowel Sounds, Soft, Non-Tender, No Organomegaly, No Distention, No Abnormal Bruit, No Mass, Pelvis Stable - Assessment Assessment:: 19yo s/p at 39w3d - Plan Plan:: Discharge home this morning - infant received 24h labs - PRN Tylenol for pain - PRN stool softeners for constipation - Pelvic rest x6 weeks - Follow-up with provider in 6 weeks - Call or come in if develop fever, chills, nausea, vomiting or bleeding soaking through 1 pad per hour <Katie Becker - Last Filed: 07/03/20 07:53> - Patient Data Vital Signs - Most Recent: Last Vital Signs Temp 36.9 C 07/03/20 04:00 Pulse 77 07/03/20 04:00 Resp 18 07/03/20 04:00 BP 105/66 07/03/20 04:00 Pulse Ox 97 07/03/20 04:00 Lab Results - Last 24 Hours: Laboratory Results - last 24 hr 07/03/20 Range/Units 05:57 Hgb 10.3 L (12.0-16.0) g/dL Hct 32.5 L (36.0-46.0) % Med Orders - Current: Current Medications Acetaminophen (Tylenol Extra Strength) 1,000 mg PO Q6H PRN PRN Reason: Pain Benzocaine/Menthol (Dermoplast Pain Relief 20%-0.5% [place]) 78 gm TOP ASDIRECTED PRN PRN Reason: Perineal Comfort Measure Last Admin: 07/02/20 02:51 Dose: 1 canister Documented by: Bisacodyl (Dulcolax) 10 mg RECTAL ONETIME PRN PRN Reason: Constipation Butorphanol Tartrate (Stadol) 1 mg IVPUSH Q1H PRN PRN Reason: Pain Last Admin: 07/01/20 17:06 Dose: 1 mg Documented by: Carboprost Tromethamine (Hemabate Ds) 250 mcg IM ASDIRECTED PRN PRN Reason: Post Hemorrhage Docusate Sodium (Colace) 100 mg PO BID PRN PRN Reason: Constipation Last Admin: 07/02/20 20:58 Dose: 100 mg Documented by: Emollient Ointment (Lansinoh Hpa) 0 gm TOP ASDIRECTED PRN PRN Reason: Sore Nipples Last Admin: 07/02/20 02:50 Dose: 7 g Documented by: Oxytocin/Sodium Chloride (Oxytocin 30 Unit/500 Ml-Ns) 30 unit in 500 mls @ 500 mls/hr IV TITRATE TIP Last Infusion: 07/02/20 00:37 Dose: 500 mls/hr Documented by: Tranexamic Acid 1,000 mg/ (Sodium Chloride) 110 mls @ 660 mls/hr IV ONETIME PRN PRN Reason: Bleeding Oxytocin/Sodium Chloride (Oxytocin 30 Unit/500 Ml-Ns) 30 unit in 500 mls @ 2 mls/hr IV TITRATE TIP; Protocol Last Titration: 07/02/20 00:21 Dose: 0 munits/min, 0 mls/hr Documented by: Lactated Ringer's (Ringers, Lactated) 1,000 mls @ 150 mls/hr IV ASDIRECTED TIP Last Admin: 07/01/20 17:41 Dose: 500 mls/hr Documented by: Ibuprofen (Motrin) 800 mg PO Q8H PRN PRN Reason: Pain Last Admin: 07/02/20 18:03 Dose: 800 mg Documented by: Lidocaine HCl (Xylocaine 1%) 50 ml INJECT ONETIME PRN PRN Reason: Laceration repair Last Admin: 07/02/20 00:30 Dose: 50 ml Documented by: Methylergonovine Maleate (Methergine) 0.2 mg IM ASDIRECTED PRN PRN Reason: Post Hemorrhage Misoprostol (Cytotec) 200 mcg PO ONETIME PRN PRN Reason: Post Hemorrhage Nalbuphine HCl (Nubain) 10 mg IVPUSH Q1H PRN PRN Reason: Pain (severe 7-10) Oxycodone HCl (Oxycodone) 5 mg PO Q2H PRN PRN Reason: Pain Sodium Chloride (Saline Flush) 10 ml FLUSH ASDIRECTED PRN PRN Reason: Keep Vein Open Sodium Chloride (Saline Flush) 2.5 ml FLUSH ASDIRECTED PRN PRN Reason: Keep Vein Open Sodium Chloride (Normal Saline) 10 ml IV ASDIRECTED PRN PRN Reason: IV Use Sterile Water (Sterile Water For Irrigation) 1,000 ml IRR ASDIRECTED PRN PRN Reason: delivery Last Admin: 07/02/20 00:38 Dose: 1,000 ml Documented by: Terbutaline Sulfate (Brethine) 0.25 mg SUBCUT ASDIRECTED PRN PRN Reason: Tacysystole Witch [place] (Tucks) 1 pad TOP ASDIRECTED PRN PRN Reason: comfort care Last Admin: 08/11/20 02:51 Dose: 1 tub Documented by: Discontinued Medications Fentanyl (Sublimaze) Confirm Administered Dose 100 mcg .ROUTE .STK-MED ONE Stop: 07/01/20 17:41 Ropivacaine (Naropin 0.2%) Confirm Administered Dose 100 mls @ as directed .ROUTE .STK-MED ONE Stop: 07/01/20 17:41 Ketorolac Tromethamine (Toradol) 30 mg IVPUSH ONETIME STA Stop: 07/02/20 18:15 Last Admin: 07/02/20 18:29 Dose: 30 mg Documented by: - Problem List & Annotations (1) Vaginal delivery SNOMED Code(s): 962279780 Code(s): O80 - ENCOUNTER FOR FULL-TERM UNCOMPLICATED DELIVERY Status: Acute Current Visit: Yes - Problem List Review Problem List Initiated/Reviewed/Updated: Yes - Plan Plan:: Agree with the above. going well. Desires discharge home today, reviewed discharge instructions.
[2020-07-03 08:26] VITALS: BP 116/74; PULSE 75
== END 2020-07-03 11:00 | disposition home or self-care (01) | DRG 560 ==
LOC: MW.OB 00:20 → OBSVTOIN 07-02 00:20 → MW.OB 07-02 03:30
PROVIDERS: ADMIT Obstetrics & Gynecology; ATTEND Obstetrics & Gynecology
PROC: 10E0XZZ Delivery of Products of Conception, External Approach (ICD-10-PCS; principal; 2020-07-02)
PROC: 0HQ9XZZ Repair Perineum Skin, External Approach (ICD-10-PCS; 2020-07-02)
PROC: 3E0R3BZ Introduction of Anesthetic Agent into Spinal Canal, Percutaneous Approach (ICD-10-PCS; 2020-07-02)
PROC: 10907ZC Drainage of Amniotic Fluid, Therapeutic from Products of Conception, Via Natural or Artificial Opening (ICD-10-PCS; 2020-07-02)
DX: O77.0 Labor and delivery complicated by meconium in amniotic fluid (principal); Z3A.39 39 weeks gestation of pregnancy; Z37.0 Single live birth; O70.0 First degree perineal laceration during delivery; O76 Abnormality in fetal heart rate and rhythm complicating labor and delivery; Z11.59 Encounter for screening for other viral diseases
CPT/HCPCS: 36415; 51702; 59025; 59409; 82803; 85014; 85018; 85027; 86592; 86850; 86900; 86901; A9270-GY; J0595; J1885; J2001; J2590; J2795; J3010; J7120; U0002